=== PATIENT | female | born 1980 | race Caucasian/White ===

== ENCOUNTER 2019-05-22 06:39 | Day surgery (SDC) | payer BC ==
[~2019-05-22 06:39] MED LIST: Buffered Lidocaine 1% SYRIN* 1 ML/SYRINGE INTRADERM ONE; Lactated Ringers 1000 ML Bag* 1,000 ML IV SCH
[2019-05-22] MEDS ORDERED: Ketorolac INJ* 30 MG/ML 1 ML VIAL ONE (07:21)
[2019-05-22] MEDS ORDERED: Dexamethasone IV* 4 MG/ML 1 ML (4 MG) ONE (07:21)
[2019-05-22] MEDS ORDERED: Lidocaine 2% PF * 5 ML VIAL ONE (07:21)
[2019-05-22] MEDS ORDERED: Ondansetron INJ* 2 MG/ML VIAL ONE (07:21)
[2019-05-22] MEDS ORDERED: fentaNYL* 50 MCG/ML 2 ML VIAL (100 MCG VIAL) ONE (07:21)
[2019-05-22] MEDS ORDERED: Propofol* 10 MG/ML 20 ML BTL ONE (07:21)
[2019-05-22 08:10] LABS: Hematocrit 30 % (35-47); Hemoglobin 9.3 g/dL (12.0-16.0); Mean Corpuscular HGB Conc 31 g/dL (31-36); Mean Corpuscular Hemoglobin 23 pg (27-31); Mean Corpuscular Volume 74 fL (80-97); Mean Platelet Volume 8.1 fL (7.4-10.4); Platelet Count 321 10^3/uL (150-450); Red Blood Count 4.01 10^6 /uL (3.70-4.87); Red Cell Distribution Width 17 % (10-15); White Blood Count 4.7 10^3/uL (3.5-10.8)
[2019-05-22] MEDS ORDERED: HYDROcodone/ACETAMIN 5-325 MG* 1 TAB PO PRN (09:01)
[2019-05-22] MEDS ORDERED: HYDROmorphone INJ1* 1 MG/ML SYRINGE IV PRN (09:01)
[2019-05-22] MEDS ORDERED: Naloxone* 0.4 MG/ML 1 ML VIAL IV PRN (09:01)
[2019-05-22] MEDS ORDERED: DiMENhydriNATE IV* 50 MG/ML VIAL IV PUSH PRN (09:01)
[2019-05-22] MEDS ORDERED: Midazolam* 1 MG/ML 2 ML VIAL (2 MG) ONE (09:16)
[2019-05-22 10:57] VITALS: BP 108/78
--- NOTE | 2019-05-22 18:46 | OP ---
DATE OF OPERATION: 05/22/19 - [facility] DATE OF : 76 SURGEON: Kimo Welch DO. ANESTHESIA: General endotracheal. PRE-OP DIAGNOSIS: Uterine polyp. POST-OP DIAGNOSIS: Uterine polyp. OPERATIVE PROCEDURE: Operative hysteroscopy, polypectomy. IV FLUIDS: 700 mL. ESTIMATED BLOOD LOSS: 25 mL. SPECIMENS: Endometrial polyps and endometrial curettage. Fluid Deficit: 170mL COMPLICATIONS: None. FINDINGS: Exam under anesthesia revealed a normal sized anteverted uterus with normal contour and normal bilateral adnexa. Hysteroscopy exhibited multiple polyps on the posterior wall with two larger polyps and multiple smaller polyps. Uterine cavity and bilateral tubal ostia otherwise appeared to be normal. INDICATIONS: The patient is a 38-year-old who presented in the outpatient setting with increased irregular and heavy vaginal bleeding, underwent REST ROOM MAID ultrasound, which exhibited polyps. The risks, benefits, and alternatives of the procedure were discussed with the patient. She understood the risks of the procedure include, but are not limited to, uterine perforation, fluid overload, and rare risk of . She wished to proceed and signed the consent form. DESCRIPTION OF PROCEDURE: The patient was taken to the OR where general anesthesia was administered without difficulty. She was placed in the dorsal lithotomy position with [place]fin stirrups. An exam under anesthesia revealed a normal anteverted uterus. The patient was then prepped and draped in the normal sterile fashion. A weighted speculum was inserted in the posterior aspect of the vagina. A single-tooth tenaculum was used to grasp the anterior lip of the cervix. The cervical os was sequentially dilated to 19 using Hanks dilators in order to accommodate the 6.25 mm MyoSure hysteroscope. Hysteroscope was introduced under direct visualization and the uterus was distended with normal saline. The aforementioned findings were noted. The MyoSure Reach device was introduced and the polyps were successfully resected from the posterior aspect of the endometrial cavity with the Reach device. The hysteroscope was then withdrawn along with the MyoSure Reach device. The uterus was curettaged in a clockwise fashion until a gritty feeling was noted in all aspects of the uterus using a medium size curette. The polyps and endometrial scrapings were sent to Pathology. The tenaculum was removed from the cervix and good hemostasis was noted at the puncture sites. The patient tolerated the procedure well. The instrument and sponge counts were correct x2. The patient was awakened from general anesthesia and taken to the recovery room in a stable condition. DO KAMAR Padilla [id number] #: [id number] [facility]
== END 2019-05-22 10:45 | disposition home or self-care (01) ==
LOC: OR 06:39
PROVIDERS: ATTEND Obstetrics & Gynecology
DX: N84.0 Polyp of corpus uteri (principal); N92.0 Excessive and frequent menstruation with regular cycle
CPT/HCPCS: 36415; 81025; 85027; 86850; 86900; 86901; 88305; J1100; J1885; J2250; J2405; J2704; J3010